=== PATIENT | female | born 1930 | race Caucasian/White ===

== ENCOUNTER 2017-08-26 15:08 | Inpatient (IN) | payer MEDICARE, MEDICAID ==
[2017-08-26 16:06] LABS: CHLORIDE,CL 105 mEq/L (98-106); SODIUM,NA 142 mEq/L (136-145)
--- NOTE | 2017-08-26 16:47 | EDM.PDOC ---
ED HPI GENERAL MEDICAL PROBLEM - General Chief Complaint: General Stated Complaint: weakness Time Seen by Provider: 08/26/17 16:00 Source of Information: Reports: EMS, Family History Limitations: Reports: Altered Mental Status (patient has dementia, answers with yes and no to questioning. ) - History of Present Illness INITIAL COMMENTS - FREE TEXT/NARRATIVE: Patient presents to ER per EMS due to weakness. Patient is a resident at the [facility] in [place] and was getting up from the table to transfer and was very weak and had to be lowered to the floor as "her legs gave out" as was reported to EMS from caregiver. Typically patient does ambulate short distances with a walker but today couldn't even stand. Caregiver reports she was weaker yesterday but still able to transfer. Hasn't had any fevers. No nausea/vomiting or diarrhea. Daughter here and states is concerned about patient being here and exposed to all the "illnesses going around". Onset: Today, Sudden Duration: Hour(s): Location: Reports: Generalized Associated Symptoms: Reports: Confusion (chronic ). Denies: Chest Pain, Cough, Loss of Appetite, Nausea/Vomiting (all ROS reported by caregiver, patient does not admit to anything), Shortness of Breath Treatments DISPLAY DIRECTOR: Reports: EKG, IV/IO - Related Data Allergies Allergy/AdvReac Type Severity Reaction Status Date / Time No Known Allergies Allergy Verified 08/26/17 15:19 Home Meds: Home Meds Albuterol Sulfate [Proair Hfa] 2 puff IH Q4H PRN 06/28/15 [History] Aspirin [Adult Low Dose Aspirin EC] 81 mg PO BEDTIME 06/28/15 [History] Donepezil HCl 10 mg PO WITHDINNER 06/28/15 [History] Ibuprofen/Diphenhydramine Cit [Advil PM Caplet] 1 tab PO BEDTIME 06/28/15 [ History] Mometasone/Formoterol [Dulera 100-5 MCG] 1 puff IH BIDRT 06/28/15 [History] Montelukast [Singulair] 10 mg PO DAILY 06/28/15 [History] Pantoprazole [ProTONIX] 40 mg PO DAILY 06/28/15 [History] atorvaSTATin [Lipitor] 20 mg PO DAILY 06/28/15 [History] risperiDONE [RisperiDAL] 0.25 mg PO BEDTIME 06/28/15 [History] Sertraline [Zoloft] 50 mg PO DAILY 06/30/15 [History] Lisinopril [Prinivil] 10 mg PO DAILY #30 tablet 07/02/15 [Rx] amLODIPine [Norvasc] 10 mg PO DAILY #30 tablet 07/02/15 [Rx] Carbidopa/Levodopa [Carbidopa-Levodopa 25-250] 1 tab PO TID 08/26/17 [History] Cetirizine [ZyrTEC] 10 mg PO DAILY 08/26/17 [History] Cranberry 500 mg PO DAILY 08/26/17 [History] Docusate Sodium [Doc-Q-Lace] 100 mg PO ASDIRECTED 08/26/17 [History] Donepezil HCl [Donepezil HCl] 1 tab PO QPM 08/26/17 [History] Past Medical History HEENT History: Reports: Allergic Rhinitis Other HEENT History: CERUMINOSIS Cardiovascular History: Reports: Hypertension Respiratory History: Reports: COPD Other Respiratory History: Admitted for aspiration pneumonia Genitourinary History: Reports: UTI, Recurrent Other Musculoskeletal History: Weakness Psychiatric History: Reports: Dementia, Depression Social & Family History - Family History Family Medical History: Noncontributory - Tobacco Use Smoking Status *Q: Never Smoker - Recreational Drug Use Recreational Drug Use: No ED ROS GENERAL - Review of Systems Review Of Systems: ROS reveals no pertinent complaints other than HPI. ED EXAM, GENERAL - Physical Exam Exam: See Below General Appearance: Alert, WD/WN, No Apparent Distress Ears: Normal External Exam, Normal TMs Nose: Normal Inspection, Normal Mucosa Throat/Mouth: Normal Inspection, Normal Oropharynx Head: Normocephalic Neck: Normal Inspection, Supple, Non-Tender Respiratory/Chest: No Respiratory Distress, Lungs Clear, Normal Breath Sounds Cardiovascular: Regular Rate, Rhythm GI/Abdominal: Normal Bowel Sounds, Soft, Non-Tender Neurological: Alert, Oriented Psychiatric: Normal Affect, Normal Mood Skin Exam: Warm, Dry Course - Vital Signs Last Recorded V/S: Last Vital Signs Temp 97.9 F 08/26/17 15:10 Pulse 68 08/26/17 15:10 Resp 16 08/26/17 15:10 BP 136/79 08/26/17 15:10 Pulse Ox 93 L 08/26/17 15:10 - Orders/Labs/Meds Orders: Active Orders 24 hr Category Date Time Status CULTURE URINE [RM] Stat Lab 08/26/17 16:13 Received Labs: Laboratory Tests 08/26/17 08/26/17 08/26/17 Range/Units 15:39 15:39 15:55 WBC 6.9 (5.0-10.0) 10^3/uL RBC 4.56 (4.00-5.50) 10^6/uL Hgb 13.8 (12.0-16.0) g/dL Hct 43.0 (37.0-47.0) % MCV 94.3 H (82.0-94.0) fL MCH 30.3 (27.0-32.0) pg MCHC 32.1 L (33.0-38.0) g/dL RDW Coeff of Carol 13.6 (11.0-15.0) % Plt Count 217 (150-400) 10^3/uL Neut % (Auto) 74.2 (35-85) % Lymph % (Auto) 15.8 (10-55) % [place] % (Auto) 7.2 (0-16) % Eos % (Auto) 2.7 (0-5) % Baso % (Auto) 0.1 (0-3) % Neut # (Auto) 5.12 (1.80-7.00) 10^3/uL Lymph # (Auto) 1.09 (1.00-4.80) 10^3/uL [place] # (Auto) 0.50 (0.00-0.80) 10^3/uL Eos # (Auto) 0.19 (0.00-0.45) 10^3/uL Baso # (Auto) 0.01 10^3/uL Sodium 142 (136-145) mEq/L Potassium 4.3 (3.5-5.0) mEq/L Chloride 105 (98-106) mEq/L Carbon Dioxide 27 (21-32) mmol/L BUN 19 H (7-18) mg/dL Creatinine 0.8 (0.6-1.0) mg/dL Est Cr Clr Drug Dosing 36.26 mL/min Estimated GFR (MDRD) > 60 (>=60) mL/min Glucose 99 (75-99) mg/dL Calcium 9.0 (8.4-10.1) mg/dL Total Bilirubin 0.5 (0.0-1.0) mg/dL AST 15 (15-37) U/L ALT 12 (12-78) U/L Alkaline Phosphatase 56 (46-116) U/L Lactate Dehydrogenase 166 (100-190) U/L Creatine Kinase 65 (21-215) U/L Troponin I < 0.017 (0.00-0.06) ng/mL C-Reactive Protein 1.4 H (0.2-0.8) mg/dL Total Protein 6.7 (6.4-8.2) g/dL Albumin 3.5 (3.4-5.0) g/dL Urine Color Yellow (YELLOW) Urine Appearance Slightly cloudy (CLEAR) Urine pH 7.0 (4.5-8.0) Ur Specific [place] 1.020 (1.003-1.020) Urine Protein Negative (NEGATIVE) mg/dL Urine Glucose (UA) Negative (NEGATIVE) mg/dL Urine Ketones 15 H (NEGATIVE) mg/dL Urine Occult Blood Negative (NEGATIVE) Urine Nitrite Negative (NEGATIVE) Urine Bilirubin Negative (NEGATIVE) Urine Urobilinogen 0.2 (0.2-1.0) EU/dL Ur Leukocyte Esterase Trace H (NEGATIVE) Urine RBC Not seen (0-5) /HPF Urine WBC 5-10 H (0-5) /HPF Ur Squamous Epith Cells Few H (NOT SEEN) /HPF Urine Bacteria Moderate H (NOT SEEN) /HPF Urinalysis Comment - Re-Assessments/Exams Free Text/Narrative Re-Assessment/Exam: 08/26/17 16:50 Did contact caregiver again by phone as well as with speaking to daughter who is at bedside. She does have a positive uncomplicated urine, labs otherwise normal. Caregiver does not feel she would be able to care for her unless her strength improves with treatment of the UTI. Will admit patient to observation for IV antibiotics and see how she does. Daughter is willing to allow this. Departure - Departure Time of Disposition: 17:00 Disposition: Refer to Observation Condition: Fair Clinical Impression: UTI (urinary tract infection) Qualifiers: Urinary tract infection type: acute cystitis Hematuria presence: with hematuria Qualified Code(s): N30.01 - Acute cystitis with hematuria - Discharge Information Referrals: Provider,Unknown [Ordering Only Provider] - - Problem List & Annotations (1) UTI, Urinary tract infectious disease SNOMED Code(s): 50508518 Code(s): N39.0 - URINARY TRACT INFECTION, SITE NOT SPECIFIED Status: Acute Priority: High Current Visit: Yes - Problem List Review Problem List Initiated/Reviewed/Updated: Yes - My Orders Last 24 Hours: My Active Orders 08/26/17 16:13 CULTURE URINE [RM] Stat - Assessment/Plan Admission H&P: Please use this note as an admission H&P Last 24 Hours: My Active Orders 08/26/17 16:13 CULTURE URINE [RM] Stat Assessment:: UTI Weakness Plan: Admit observation to Dr. Lima. Will start IV antibiotics for UTI, IV fluids. PT wanda.
[2017-08-26] MEDS ORDERED: Sodium Chloride 0.9% 10 ML Syringe FLUSH PRN (17:10)
[2017-08-26] MEDS ORDERED: Ondansetron 4 MG Tab.DIS PO PRN (17:10)
[2017-08-26] MEDS ORDERED: Albuterol 8 GM Inhaler INH PRN (17:10)
[2017-08-26] MEDS ORDERED: Acetaminophen 325 MG Tab PO PRN (17:10)
[2017-08-26] MEDS ORDERED: Ondansetron 4 MG/2 ML SDV IV PRN (17:10)
[2017-08-26] MEDS: Sodium Chloride 0.9% 1,000 ML IV SCH (17:40)
[2017-08-26] MEDS: Levofloxacin/Dextrose 5%-Water 500 MG in Premix Bag 1 BAG IV SCH (17:42)
[2017-08-26] MEDS: Enoxaparin 40 MG/0.4 ML Syringe SUBCUT SCH (19:39)
[2017-08-26] MEDS: Formoterol/Mometasone 100-5 MCG 8.8 GM Inhaler IH SCH (19:39)
[2017-08-26] MEDS ORDERED: DIPHENHYDRAMINE PO SCH (20:00)
[2017-08-26] MEDS ORDERED: RISPERIDONE 0.25 MG PO SCH (20:00)
[2017-08-26] MEDS ORDERED: IBUPROFEN PO SCH (20:00)
[2017-08-26] MEDS ORDERED: LEVODOPA PO SCH (20:00)
[2017-08-26] MEDS ORDERED: ASPIRIN 81 MG TAB **PTOM PO SCH (20:00)
[2017-08-26] MEDS ORDERED: DONEPEZIL 10 MG PO SCH (20:00)
[2017-08-26] MEDS ORDERED: DOCUSATE 100 MG PO SCH (20:00)
[2017-08-26] MEDS ORDERED: CARBIDOPA PO SCH (20:00)
[2017-08-27] MEDS: Sodium Chloride 0.9% 1,000 ML IV SCH (07:33)
[2017-08-27] MEDS: Formoterol/Mometasone 100-5 MCG 8.8 GM Inhaler IH SCH ×2 (07:45→19:16)
[2017-08-27] MEDS ORDERED: AMLODIPINE 10 MG PO SCH (08:00)
[2017-08-27] MEDS ORDERED: PANTOPRAZOLE 40 MG PO SCH (08:00)
[2017-08-27] MEDS ORDERED: CARBIDOPA PO SCH (08:00)
[2017-08-27] MEDS ORDERED: SERTRALINE 50 MG PO SCH (08:00)
[2017-08-27] MEDS ORDERED: CERTIRIZINE PO SCH (08:00)
[2017-08-27] MEDS ORDERED: MONTELUKAST 10 MG PO SCH (08:00)
[2017-08-27] MEDS ORDERED: LISINOPRIL 10 MG PO SCH (08:00)
[2017-08-27] MEDS ORDERED: LEVODOPA PO SCH (08:00)
[2017-08-27 08:23] LABS: CHLORIDE,CL 106 mEq/L (98-106); SODIUM,NA 139 mEq/L (136-145)
--- NOTE | 2017-08-27 09:01 | PCM.PN ---
- General Info Date of Service: 08/27/17 Functional Status: Reports: Pain Controlled. Denies: Tolerating Diet (Patient is sitting up in bed eating with RN assistance. However, she is coughing with drinking thin liquids. ), Ambulating - Review of Systems General: Reports: Weakness (generally) HEENT: Reports: No Symptoms Pulmonary: Reports: Cough (with thin liquids. ) Cardiovascular: Reports: No Symptoms Gastrointestinal: Reports: No Symptoms Genitourinary: Reports: No Symptoms Musculoskeletal: Reports: No Symptoms Skin: Reports: No Symptoms Neurological: Reports: No Symptoms Psychiatric: Reports: No Symptoms - Patient Data Vitals - Most Recent: Last Vital Signs Temp 97.1 F 08/27/17 07:32 Pulse 69 08/27/17 07:32 Resp 16 08/27/17 07:32 BP 143/74 H 08/27/17 07:32 Pulse Ox 95 08/27/17 07:32 Weight - Most Recent: 97 lb 4.8 oz I&O - Last 24 Hours: Intake & Output 08/26/17 08/27/17 08/27/17 22:59 06:59 14:59 Intake Total 50 1000 Balance 50 1000 Lab Results Last 24 Hours: Laboratory Results - last 24 hr 08/27/17 08/27/17 Range/Units 05:11 05:11 WBC 3.9 L (5.0-10.0) 10^3/uL RBC 4.59 (4.00-5.50) 10^6/uL Hgb 13.9 (12.0-16.0) g/dL Hct 42.7 (37.0-47.0) % MCV 93.0 (82.0-94.0) fL MCH 30.3 (27.0-32.0) pg MCHC 32.6 L (33.0-38.0) g/dL RDW Coeff of Carol 13.0 (11.0-15.0) % Plt Count 196 (150-400) 10^3/uL Neut % (Auto) 63.3 (35-85) % Lymph % (Auto) 21.7 (10-55) % [place] % (Auto) 8.8 (0-16) % Eos % (Auto) 5.7 H (0-5) % Baso % (Auto) 0.5 (0-3) % Neut # (Auto) 2.45 (1.80-7.00) 10^3/uL Lymph # (Auto) 0.84 L (1.00-4.80) 10^3/uL [place] # (Auto) 0.34 (0.00-0.80) 10^3/uL Eos # (Auto) 0.22 (0.00-0.45) 10^3/uL Baso # (Auto) 0.02 10^3/uL Sodium 139 (136-145) mEq/L Potassium 4.2 (3.5-5.0) mEq/L Chloride 106 (98-106) mEq/L Carbon Dioxide 25 (21-32) mmol/L BUN 13 (7-18) mg/dL Creatinine 0.7 (0.6-1.0) mg/dL Est Cr Clr Drug Dosing 40.19 mL/min Estimated GFR (MDRD) > 60 (>=60) mL/min Glucose 96 (75-99) mg/dL Calcium 8.2 L (8.4-10.1) mg/dL C-Reactive Protein 0.5 (0.2-0.8) mg/dL Med Orders - Current: Current Medications Acetaminophen (Tylenol) 650 mg PO Q4H PRN PRN Reason: Pain (Mild 1-3)/fever Albuterol (Ventolin Hfa) 0 gm INH Q4H PRN PRN Reason: Shortness of Breath Enoxaparin Sodium (Lovenox) 40 mg SUBCUT Q24H [facility] Last Admin: 08/26/17 19:39 Dose: 40 mg Sodium Chloride (Normal Saline) 1,000 mls @ 75 mls/hr IV ASDIRECTED [facility] Last Admin: 08/27/17 07:33 Dose: 75 mls/hr Levofloxacin/Dextrose 500 mg/ (Premix) 100 mls @ 100 mls/hr IV Q24H [facility] Last Admin: 08/26/17 17:42 Dose: 100 mls/hr Mometasone Furoate/Formoterol Fumar (Dulera 100-5 Mcg) 1 puff IH BIDRT [facility] Last Admin: 08/27/17 07:45 Dose: 1 puff Ondansetron HCl (Zofran Odt) 4 mg PO Q4H PRN PRN Reason: nausea, able to take PO Ondansetron HCl (Zofran) 4 mg IV Q4H PRN PRN Reason: Nausea/Vomiting Ptom - Amlodipine 10 (Mg Tab) 10 each PO DAILY [facility] Last Admin: 08/27/17 07:39 Dose: 10 each Aspirin 81 Mg Tab (Ptom) 1 each PO BEDTIME [facility] Last Admin: 08/26/17 19:42 Dose: 1 each Atorvastatin 20 Mg * (*Ptom) 20 each PO DAILY@2000 [facility] Carbidopa/Levodopa (25/250mg Tab Ptom*) 1 each PO BID@0800,1200 [facility] Last Admin: 08/27/17 07:40 Dose: 1 each Certirizine 10 Mg (Tab Ptom) 1 each PO DAILY [facility] Last Admin: 08/27/17 07:40 Dose: 1 each Docusate Colase 100 (Mg Cap Ptom) 100 each PO BEDTIME [facility] Last Admin: 08/26/17 19:43 Dose: 100 each Donepezil 10 Mg Tab (Ptom) 1 each PO QPM [facility] Last Admin: 08/26/17 19:44 Dose: 1 each Ibuprofen/Diphenhydramine 200/25mg Tab (Advil Pm) Ptom 1 each PO BEDTIME [facility] Last Admin: 08/26/17 19:45 Dose: 1 each Lisinopril 10 Mg Tab (Ptom) 1 each PO DAILY [facility] Last Admin: 08/27/17 07:40 Dose: 1 each Montelukast 10mg Tab (Ptom) 1 each PO DAILY [facility] Last Admin: 08/27/17 07:39 Dose: 1 each Pantoprazole 40mg (Tab Ptom) 1 each PO DAILY [facility] Last Admin: 08/27/17 07:38 Dose: 1 each Rispiridone 0.25mg (Tab Ptom) 1 each PO BEDTIME [facility] Last Admin: 08/26/17 19:45 Dose: 1 each Sertraline 50mg Tab (Ptom) 1 each PO DAILY [facility] Last Admin: 08/27/17 07:38 Dose: 1 each Carbidopa/Levodopa (25/100mg Ptom) 1 each PO BEDTIME [facility] Last Admin: 08/26/17 19:43 Dose: 1 each Sodium Chloride (Saline Flush) 10 ml FLUSH ASDIRECTED PRN PRN Reason: Keep Vein Open - Exam General: Alert, Cooperative, Other (oriented to self.) HEENT: Pupils Equal, Pupils Reactive, Mucous Membr. Moist/[place] Neck: Supple Lungs: Normal Respiratory Effort, Crackles (RLL) Cardiovascular: Regular Rate, Regular Rhythm GI/Abdominal Exam: Soft, Non-Tender Back Exam: Normal Inspection, Full Range of Motion Extremities: Normal Inspection, Normal Range of Motion, Non-Tender, No Pedal Edema, Normal Capillary Refill Peripheral Pulses: 2+: Radial (L), Radial (R), Posterior Tibial (L), Posterior Tibial (R), Dorsalis Pedis (L), Dorsalis Pedis (R) Skin: Warm, Dry, Intact Neurological: No New Focal Deficit, Other (oriented to self. Verbal responses slow. baseline history of dementia. ) Psy/Mental Status: Alert, Normal Affect, Suicidal Ideation - Problem List Review Problem List Initiated/Reviewed/Updated: Yes - My Orders Last 24 Hours: My Active Orders 08/26/17 20:00 Enoxaparin [Lovenox] 40 mg SUBCUT Q24H 08/27/17 08:49 Chest 1V Frontal [CR] Stat 08/27/17 Lunch Thickened Liquids [DIET] - Plan Plan:: This patient was admitted yesterday from the ER for generalized weakness and UTI. Patient labs this morning are unremarkable. Patient is sitting up in bed eating with RN assistance breakfast. She does cough with thin liquids. I anticipate she is aspirating thin liquids. I have ordered thickener and she is not coughing with liquids anymore. I have ordered a chest xray. Patient does not appear to be in distress. No resp distress. Patient specialty finishing utility person reports she can not take care of the patient due to her weakness. Daughter also reports she is unable to take care of the patient at home. Therefore, Tuesday long term placement will be explored with addiction social worker.
[2017-08-27] MEDS: Carbidopa/Levodopa 25-250 MG Tab PO SCH (12:00)
[2017-08-27] MEDS: Levofloxacin/Dextrose 5%-Water 500 MG in Premix Bag 1 BAG IV SCH (16:54)
[2017-08-27] MEDS: Donepezil 5 MG Tab PO SCH (19:14)
[2017-08-27] MEDS: Enoxaparin 40 MG/0.4 ML Syringe SUBCUT SCH (19:14)
[2017-08-27] MEDS: Ibuprofen 200 MG Tab PO SCH (19:15)
[2017-08-27] MEDS: atorvaSTATin 20 MG Tab PO SCH (19:15)
[2017-08-27] MEDS: diphenhydrAMINE 25 MG Cap PO SCH (19:15)
[2017-08-27] MEDS: Carbidopa/Levodopa 25-100 MG Tab PO SCH (19:15)
[2017-08-27] MEDS: Aspirin 81 MG Tab.EC PO SCH (19:15)
[2017-08-27] MEDS: risperiDONE 0.25 MG Tab PO SCH (19:15)
[2017-08-27] MEDS: Docusate Sodium 100 MG Cap PO SCH (19:15)
--- NOTE | 2017-08-28 05:07 | PCM.PN ---
- General Info Date of Service: 08/28/17 Functional Status: Reports: Pain Controlled, Tolerating Diet (now that she is on thick liquids. No cough or signs of active aspiration. ) - Review of Systems General: Reports: Weakness (generalized) HEENT: Reports: No Symptoms Pulmonary: Reports: No Symptoms Cardiovascular: Reports: No Symptoms Gastrointestinal: Reports: No Symptoms Genitourinary: Reports: No Symptoms Musculoskeletal: Reports: No Symptoms Skin: Reports: No Symptoms Neurological: Reports: No Symptoms Psychiatric: Reports: No Symptoms - Patient Data Vitals - Most Recent: Last Vital Signs Temp 98.6 F 08/28/17 03:43 Pulse 81 08/28/17 03:43 Resp 16 08/28/17 03:43 BP 142/82 H 08/28/17 03:43 Pulse Ox 95 08/28/17 03:43 Weight - Most Recent: 97 lb 4.8 oz I&O - Last 24 Hours: Intake & Output 08/27/17 08/27/17 08/28/17 14:59 22:59 06:59 Intake Total 565 Balance 565 Med Orders - Current: Current Medications Acetaminophen (Tylenol) 650 mg PO Q4H PRN PRN Reason: Pain (Mild 1-3)/fever Albuterol (Ventolin Hfa) 0 gm INH Q4H PRN PRN Reason: Shortness of Breath Amlodipine Besylate (Norvasc) 10 mg PO DAILY [facility] Aspirin (Halfprin) 81 mg PO BEDTIME [facility] Last Admin: 08/27/17 19:15 Dose: 81 mg Atorvastatin Calcium (Lipitor) 20 mg PO DAILY@1999 [facility] Last Admin: 08/27/17 19:15 Dose: 20 mg Carbidopa/Levodopa (Sinemet 25-100 Mg) 1 tab PO BEDTIME [facility] Last Admin: 08/27/17 19:15 Dose: 1 tab Carbidopa/Levodopa (Sinemet 25-250 Mg) 1 tab PO BID@0800,1200 [facility] Last Admin: 08/27/17 12:00 Dose: 1 tab Diphenhydramine HCl (Benadryl) 25 mg PO BEDTIME [facility] Last Admin: 08/27/17 19:15 Dose: 25 mg Docusate Sodium (Colace) 100 mg PO BEDTIME [facility] Last Admin: 08/27/17 19:15 Dose: 100 mg Donepezil HCl (Aricept) 10 mg PO QPM [facility] Last Admin: 08/27/17 19:14 Dose: 10 mg Enoxaparin Sodium (Lovenox) 40 mg SUBCUT Q24H [facility] Last Admin: 08/27/17 19:14 Dose: 40 mg Levofloxacin/Dextrose 500 mg/ (Premix) 100 mls @ 100 mls/hr IV Q24H [facility] Last Admin: 08/27/17 16:54 Dose: 100 mls/hr Ibuprofen (Motrin) 200 mg PO BEDTIME [facility] Last Admin: 08/27/17 19:15 Dose: 200 mg Lisinopril (Prinivil) 10 mg PO DAILY [facility] Loratadine (Claritin) 10 mg PO DAILY [facility] Mometasone Furoate/Formoterol Fumar (Dulera 100-5 Mcg) 1 puff IH BIDRT [facility] Last Admin: 08/27/17 19:16 Dose: 1 puff Montelukast Sodium (Singulair) 10 mg PO DAILY [facility] Ondansetron HCl (Zofran Odt) 4 mg PO Q4H PRN PRN Reason: nausea, able to take PO Ondansetron HCl (Zofran) 4 mg IV Q4H PRN PRN Reason: Nausea/Vomiting Pantoprazole Sodium (Protonix) 40 mg PO DAILY [facility] Risperidone (Risperidal) 0.25 mg PO BEDTIME [facility] Last Admin: 08/27/17 19:15 Dose: 0.25 mg Sertraline HCl (Zoloft) 50 mg PO DAILY [facility] Sodium Chloride (Saline Flush) 10 ml FLUSH ASDIRECTED PRN PRN Reason: Keep Vein Open Discontinued Medications Sodium Chloride (Normal Saline) 1,000 mls @ 75 mls/hr IV ASDIRECTED [facility] Last Admin: 08/27/17 07:33 Dose: 75 mls/hr Ptom - Amlodipine 10 (Mg Tab) 10 each PO DAILY [facility] Last Admin: 08/27/17 07:39 Dose: 10 each Aspirin 81 Mg Tab (Ptom) 1 each PO BEDTIME [facility] Last Admin: 08/26/17 19:42 Dose: 1 each Carbidopa/Levodopa (25/250mg Tab Ptom*) 1 each PO BID@0800,1200 [facility] Last Admin: 08/27/17 07:40 Dose: 1 each Certirizine 10 Mg (Tab Ptom) 1 each PO DAILY [facility] Last Admin: 08/27/17 07:40 Dose: 1 each Docusate Colase 100 (Mg Cap Ptom) 100 each PO BEDTIME [facility] Last Admin: 08/26/17 19:43 Dose: 100 each Donepezil 10 Mg Tab (Ptom) 1 each PO QPM [facility] Last Admin: 08/26/17 19:44 Dose: 1 each Ibuprofen/Diphenhydramine 200/25mg Tab (Advil Pm) Ptom 1 each PO BEDTIME [facility] Last Admin: 08/26/17 19:45 Dose: 1 each Lisinopril 10 Mg Tab (Ptom) 1 each PO DAILY [facility] Last Admin: 08/27/17 07:40 Dose: 1 each Montelukast 10mg Tab (Ptom) 1 each PO DAILY [facility] Last Admin: 08/27/17 07:39 Dose: 1 each Pantoprazole 40mg (Tab Ptom) 1 each PO DAILY [facility] Last Admin: 08/27/17 07:38 Dose: 1 each Rispiridone 0.25mg (Tab Ptom) 1 each PO BEDTIME [facility] Last Admin: 08/26/17 19:45 Dose: 1 each Sertraline 50mg Tab (Ptom) 1 each PO DAILY [facility] Last Admin: 08/27/17 07:38 Dose: 1 each Carbidopa/Levodopa (25/100mg Ptom) 1 each PO BEDTIME [facility] Last Admin: 08/26/17 19:43 Dose: 1 each - Exam General: Alert, Oriented (to self only. baseline. ), Cooperative, No Acute Distress Neck: Supple Lungs: Normal Respiratory Effort, Crackles (RLL) Cardiovascular: Regular Rate, Regular Rhythm GI/Abdominal Exam: Normal Bowel Sounds, Soft, Non-Tender, No Distention Back Exam: Normal Inspection, Full Range of Motion Extremities: Normal Inspection, Normal Range of Motion, Non-Tender, No Pedal Edema, Normal Capillary Refill Skin: Warm, Dry, Intact Neurological: No New Focal Deficit Psy/Mental Status: Alert, Normal Affect, Normal Mood - Problem List Review Problem List Initiated/Reviewed/Updated: Yes - My Orders Last 24 Hours: My Active Orders 08/27/17 Lunch Thickened Liquids [DIET] 08/28/17 04:59 CULTURE BLOOD [BC] Stat CULTURE BLOOD [BC] Stat LACTIC ACID [CHEM] Routine Blood Culture x2 Reflex Set [OM.PC] Stat 08/28/17 05:00 CBC WITH AUTO DIFF [HEME] DAILY CMP [COMPREHENSIVE METABOLIC PN,CMP] [CHEM] DAILY CRP, HIGH SENSITIVITY [REF] DAILY 08/29/17 05:00 CBC WITH AUTO DIFF [HEME] DAILY CMP [COMPREHENSIVE METABOLIC PN,CMP] [CHEM] DAILY CRP, HIGH SENSITIVITY [REF] DAILY 08/30/17 05:00 CBC WITH AUTO DIFF [HEME] DAILY CMP [COMPREHENSIVE METABOLIC PN,CMP] [CHEM] DAILY CRP, HIGH SENSITIVITY [REF] DAILY - Plan Plan:: 08/27/17814 This patient was admitted yesterday from the ER for generalized weakness and UTI. Patient labs this morning are unremarkable. Patient is sitting up in bed eating with RN assistance breakfast. She does cough with thin liquids. I anticipate she is aspirating thin liquids. She does have crackles RLL on auscultation. Have ordered CXR. I have ordered thickener and she is not coughing with liquids anymore. Patient does not appear to be in distress. No resp distress. Patient spd manager reports she can not take care of the patient due to her weakness. Daughter also reports she is unable to take care of the patient at home. Therefore, Tuesday long-term placement will be explored with social secretary. 08/28/17 0500 I have reviewed the patient CXR and radiologist has also read. The patient has right base infiltrate that is new from previous chest xray on 07/20/17. I have ordered patient labs for this morning and will review. I have added blood cultures, lactic acid, cbc, cmp, crp. The patient is alert and awake this morning. She is oriented to self, her baseline. Patient is currently on Levaquin for UTI. I will keep her on Levaquin for her pneumonia that could be aspiration related. I had also changed the patient yesterday to acute status from obs due to her lung sounds, inability to return home, uti, generalized weakness. Patient will be evaluated by her PCP tomorrow and continue current treatment plan of abx for pneumonia and thickened liquids.
[2017-08-28] MEDS: Pantoprazole 40 MG Tab.CR PO SCH (07:53)
[2017-08-28] MEDS: amLODIPine 10 MG Tab PO SCH (07:53)
[2017-08-28] MEDS: Carbidopa/Levodopa 25-250 MG Tab PO SCH ×2 (07:53→13:14)
[2017-08-28] MEDS: Sertraline 25 MG Tab PO SCH (07:54)
[2017-08-28] MEDS: Loratadine 10 MG Tab PO SCH (07:54)
[2017-08-28] MEDS: Montelukast 10 MG Tab PO SCH (07:54)
[2017-08-28] MEDS: Lisinopril 10 MG Tab PO SCH (07:54)
[2017-08-28 08:10] LABS: CHLORIDE,CL 105 mEq/L (98-106); SODIUM,NA 139 mEq/L (136-145)
[2017-08-28] MEDS: Formoterol/Mometasone 100-5 MCG 8.8 GM Inhaler IH SCH ×2 (08:15→20:55)
[2017-08-28] MEDS: Levofloxacin/Dextrose 5%-Water 500 MG in Premix Bag 1 BAG IV SCH (16:15)
[2017-08-28] MEDS: Ibuprofen 200 MG Tab PO SCH (20:10)
[2017-08-28] MEDS: Docusate Sodium 100 MG Cap PO SCH (20:12)
[2017-08-28] MEDS: Donepezil 5 MG Tab PO SCH (20:12)
[2017-08-28] MEDS: atorvaSTATin 20 MG Tab PO SCH (20:12)
[2017-08-28] MEDS: Aspirin 81 MG Tab.EC PO SCH (20:12)
[2017-08-28] MEDS: diphenhydrAMINE 25 MG Cap PO SCH (20:13)
[2017-08-28] MEDS: risperiDONE 0.25 MG Tab PO SCH (20:13)
[2017-08-28] MEDS: Enoxaparin 40 MG/0.4 ML Syringe SUBCUT SCH (20:13)
[2017-08-28] MEDS: Carbidopa/Levodopa 25-100 MG Tab PO SCH (20:13)
[2017-08-29] MEDS: Montelukast 10 MG Tab PO SCH (07:30)
[2017-08-29] MEDS: Pantoprazole 40 MG Tab.CR PO SCH (07:30)
[2017-08-29] MEDS: amLODIPine 10 MG Tab PO SCH (07:30)
[2017-08-29] MEDS: Sertraline 25 MG Tab PO SCH (07:31)
[2017-08-29] MEDS: Lisinopril 10 MG Tab PO SCH (07:31)
[2017-08-29] MEDS: Loratadine 10 MG Tab PO SCH (07:32)
[2017-08-29] MEDS: Carbidopa/Levodopa 25-250 MG Tab PO SCH ×2 (07:32→11:56)
[2017-08-29 07:43] LABS: CHLORIDE,CL 105 mEq/L (98-106); SODIUM,NA 139 mEq/L (136-145)
[2017-08-29] MEDS: Formoterol/Mometasone 100-5 MCG 8.8 GM Inhaler IH SCH ×2 (07:46→19:47)
--- NOTE | 2017-08-29 08:59 | PCM.PN ---
- General Info Date of Service: 08/29/17 Admission Dx/Problem (Free Text): UTI Weakness Functional Status: Reports: Pain Controlled, Tolerating Diet. Denies: Ambulating - Review of Systems General: Reports: Weakness, Other (patient denies any concerns but is only oriented to person). Denies: Fever HEENT: Reports: No Symptoms Pulmonary: Denies: Shortness of Breath, Cough Cardiovascular: Denies: Chest Pain, Edema, Lightheadedness Gastrointestinal: Denies: Abdominal Pain, Nausea, Vomiting Genitourinary: Reports: Incontinence Skin: Reports: No Symptoms Neurological: Reports: Confusion - Patient Data Vitals - Most Recent: Last Vital Signs Temp 98.3 F 08/29/17 07:54 Pulse 65 08/29/17 07:54 Resp 18 08/29/17 07:54 BP 143/66 H 08/29/17 07:54 Pulse Ox 95 08/29/17 07:54 Weight - Most Recent: 97 lb 4.8 oz Lab Results Last 24 Hours: Laboratory Results - last 24 hr 08/28/17 08/29/17 08/29/17 Range/Units 05:00 05:00 07:12 WBC 5.4 6.0 (5.0-10.0) 10^3/uL RBC 4.74 4.57 (4.00-5.50) 10^6/uL Hgb 14.4 13.8 (12.0-16.0) g/dL Hct 43.1 41.6 (37.0-47.0) % MCV 90.9 91.0 (82.0-94.0) fL MCH 30.4 30.2 (27.0-32.0) pg MCHC 33.4 33.2 (33.0-38.0) g/dL RDW Coeff of Carol 13.3 13.3 (11.0-15.0) % Plt Count 207 223 (150-400) 10^3/uL Neut % (Auto) 66.9 68.2 (35-85) % Lymph % (Auto) 19.7 17.9 (10-55) % [place] % (Auto) 7.8 9.3 (0-16) % Eos % (Auto) 5.2 H 4.1 (0-5) % Baso % (Auto) 0.4 0.5 (0-3) % Neut # (Auto) 3.60 4.12 (1.80-7.00) 10^3/uL Lymph # (Auto) 1.06 1.08 (1.00-4.80) 10^3/uL [place] # (Auto) 0.42 0.56 (0.00-0.80) 10^3/uL Eos # (Auto) 0.28 0.25 (0.00-0.45) 10^3/uL Baso # (Auto) 0.02 0.03 10^3/uL Sodium 139 (136-145) mEq/L Potassium 4.1 (3.5-5.0) mEq/L Chloride 105 (98-106) mEq/L Carbon Dioxide 26 (21-32) mmol/L BUN 16 (7-18) mg/dL Creatinine 0.8 (0.6-1.0) mg/dL Est Cr Clr Drug Dosing 35.17 mL/min Estimated GFR (MDRD) > 60 (>=60) mL/min Glucose 104 H (75-99) mg/dL Calcium 8.9 (8.4-10.1) mg/dL Total Bilirubin 0.4 (0.0-1.0) mg/dL AST 17 (15-37) U/L ALT 22 (12-78) U/L Alkaline Phosphatase 51 (46-116) U/L C-Reactive Protein < 0.2 L (0.2-0.8) mg/dL Total Protein 6.4 (6.4-8.2) g/dL Albumin 3.2 L (3.4-5.0) g/dL Samy Results Last 24 Hours: Microbiology 08/28/17 07:35 Anaerobic Blood Culture - Final Blood - Venous - Lab Draw Med Orders - Current: Current Medications Acetaminophen (Tylenol) 650 mg PO Q4H PRN PRN Reason: Pain (Mild 1-3)/fever Albuterol (Ventolin Hfa) 0 gm INH Q4H PRN PRN Reason: Shortness of Breath Amlodipine Besylate (Norvasc) 10 mg PO DAILY [facility] Last Admin: 08/29/17 07:30 Dose: 10 mg Aspirin (Halfprin) 81 mg PO BEDTIME [facility] Last Admin: 08/28/17 20:12 Dose: 81 mg Atorvastatin Calcium (Lipitor) 20 mg PO DAILY@1999 [facility] Last Admin: 08/28/17 20:12 Dose: 20 mg Carbidopa/Levodopa (Sinemet 25-100 Mg) 1 tab PO BEDTIME [facility] Last Admin: 08/28/17 20:13 Dose: 1 tab Carbidopa/Levodopa (Sinemet 25-250 Mg) 1 tab PO BID@0800,1200 [facility] Last Admin: 08/29/17 07:32 Dose: 1 tab Diphenhydramine HCl (Benadryl) 25 mg PO BEDTIME [facility] Last Admin: 08/28/17 20:13 Dose: 25 mg Docusate Sodium (Colace) 100 mg PO BEDTIME [facility] Last Admin: 08/28/17 20:12 Dose: 100 mg Donepezil HCl (Aricept) 10 mg PO QPM [facility] Last Admin: 08/28/17 20:12 Dose: 10 mg Enoxaparin Sodium (Lovenox) 40 mg SUBCUT Q24H [facility] Last Admin: 08/28/17 20:13 Dose: 40 mg Levofloxacin/Dextrose 500 mg/ (Premix) 100 mls @ 100 mls/hr IV Q24H [facility] Last Admin: 08/28/17 16:15 Dose: 100 mls/hr Ibuprofen (Motrin) 200 mg PO BEDTIME [facility] Last Admin: 08/28/17 20:10 Dose: 200 mg Lisinopril (Prinivil) 10 mg PO DAILY [facility] Last Admin: 08/29/17 07:31 Dose: 10 mg Loratadine (Claritin) 10 mg PO DAILY [facility] Last Admin: 08/29/17 07:32 Dose: 10 mg Mometasone Furoate/Formoterol Fumar (Dulera 100-5 Mcg) 1 puff IH BIDRT [facility] Last Admin: 08/29/17 07:46 Dose: 1 puff Montelukast Sodium (Singulair) 10 mg PO DAILY [facility] Last Admin: 08/29/17 07:30 Dose: 10 mg Ondansetron HCl (Zofran Odt) 4 mg PO Q4H PRN PRN Reason: nausea, able to take PO Ondansetron HCl (Zofran) 4 mg IV Q4H PRN PRN Reason: Nausea/Vomiting Pantoprazole Sodium (Protonix) 40 mg PO DAILY [facility] Last Admin: 08/29/17 07:30 Dose: 40 mg Risperidone (Risperidal) 0.25 mg PO BEDTIME [facility] Last Admin: 08/28/17 20:13 Dose: 0.25 mg Sertraline HCl (Zoloft) 50 mg PO DAILY [facility] Last Admin: 08/29/17 07:31 Dose: 50 mg Sodium Chloride (Saline Flush) 10 ml FLUSH ASDIRECTED PRN PRN Reason: Keep Vein Open Discontinued Medications Sodium Chloride (Normal Saline) 1,000 mls @ 75 mls/hr IV ASDIRECTED [facility] Last Admin: 08/27/17 07:33 Dose: 75 mls/hr Ptom - Amlodipine 10 (Mg Tab) 10 each PO DAILY [facility] Last Admin: 08/27/17 07:39 Dose: 10 each Aspirin 81 Mg Tab (Ptom) 1 each PO BEDTIME [facility] Last Admin: 08/26/17 19:42 Dose: 1 each Carbidopa/Levodopa (25/250mg Tab Ptom*) 1 each PO BID@0800,1200 [facility] Last Admin: 08/27/17 07:40 Dose: 1 each Certirizine 10 Mg (Tab Ptom) 1 each PO DAILY [facility] Last Admin: 08/27/17 07:40 Dose: 1 each Docusate Colase 100 (Mg Cap Ptom) 100 each PO BEDTIME [facility] Last Admin: 08/26/17 19:43 Dose: 100 each Donepezil 10 Mg Tab (Ptom) 1 each PO QPM [facility] Last Admin: 08/26/17 19:44 Dose: 1 each Ibuprofen/Diphenhydramine 200/25mg Tab (Advil Pm) Ptom 1 each PO BEDTIME [facility] Last Admin: 08/26/17 19:45 Dose: 1 each Lisinopril 10 Mg Tab (Ptom) 1 each PO DAILY [facility] Last Admin: 08/27/17 07:40 Dose: 1 each Montelukast 10mg Tab (Ptom) 1 each PO DAILY [facility] Last Admin: 08/27/17 07:39 Dose: 1 each Pantoprazole 40mg (Tab Ptom) 1 each PO DAILY [facility] Last Admin: 08/27/17 07:38 Dose: 1 each Rispiridone 0.25mg (Tab Ptom) 1 each PO BEDTIME [facility] Last Admin: 08/26/17 19:45 Dose: 1 each Sertraline 50mg Tab (Ptom) 1 each PO DAILY [facility] Last Admin: 08/27/17 07:38 Dose: 1 each Carbidopa/Levodopa (25/100mg Ptom) 1 each PO BEDTIME [facility] Last Admin: 08/26/17 19:43 Dose: 1 each - Exam General: Oriented (person only), Other (drowsy this am) HEENT: Mucous Membr. Moist/Guys Neck: Supple Lungs: Decreased Breath Sounds, Crackles (RLL) Cardiovascular: Regular Rate, Regular Rhythm GI/Abdominal Exam: Normal Bowel Sounds, Soft, Non-Tender Extremities: Normal Inspection, No Pedal Edema Skin: Warm, Dry Neurological: No New Focal Deficit - Problem List & Annotations (1) UTI, Urinary tract infectious disease SNOMED Code(s): 08645642 Code(s): N39.0 - URINARY TRACT INFECTION, SITE NOT SPECIFIED Status: Acute Priority: High Current Visit: Yes (2) Aspiration pneumonia SNOMED Code(s): 624632011 Code(s): J69.0 - PNEUMONITIS DUE TO INHALATION OF FOOD AND VOMIT Status: Acute Priority: High Current Visit: Yes Qualifiers: Laterality: right Lung location: lower lobe of lung - Problem List Review Problem List Initiated/Reviewed/Updated: Yes - My Orders Last 24 Hours: My Active Orders 08/28/17 08:00 Lisinopril [Prinivil] 10 mg PO DAILY Loratadine [Claritin] 10 mg PO DAILY Montelukast [Singulair] 10 mg PO DAILY Pantoprazole [ProTONIX] 40 mg PO DAILY Sertraline [Zoloft] 50 mg PO DAILY amLODIPine [Norvasc] 10 mg PO DAILY - Assessment Assessment:: UTI Weakness RLL pneumonia - Plan Plan:: 08/27/17 0815 This patient was admitted yesterday from the ER for generalized weakness and UTI. Patient labs this morning are unremarkable. Patient is sitting up in bed eating with RN assistance breakfast. She does cough with thin liquids. I anticipate she is aspirating thin liquids. She does have crackles RLL on auscultation. Have ordered CXR. I have ordered thickener and she is not coughing with liquids anymore. Patient does not appear to be in distress. No resp distress. 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 Daughter also reports she is unable to take care of the patient at home. Therefore, Tuesday correction placement will be explored with social professionals. 08/28/17 0500 I have reviewed the patient CXR and radiologist has also read. The patient has right base infiltrate that is new from previous chest xray on 07/20/17. I have ordered patient labs for this morning and will review. I have added blood cultures, lactic acid, cbc, cmp, crp. The patient is alert and awake this morning. She is oriented to self, her baseline. Patient is currently on Levaquin for UTI. I will keep her on Levaquin for her pneumonia that could be aspiration related. I had also changed the patient yesterday to acute status from obs due to her lung sounds, inability to return home, uti, generalized weakness. Patient will be evaluated by her PCP tomorrow and continue current treatment plan of abx for pneumonia and thickened liquids. 08-29-2017 Patient drowsy this am, states is feeling good. Oriented to person. No respiratory difficulties noted. Per report, patient possibly aspirated on Tuesday. Was transferred to acute status and kept on Levaquin. Lung sounds to note crackles in the RLL. Labs remain normal this am, WBC 6.0, CRP negative. Electrolytes within normal limits. Patient needing to be fed this am. guest services lead aware of patient's inability to return back to the [facility] due to weakness. Will continue with IV antibiotics, PT eval for weakness. Probable transfer to correction when able.
[2017-08-29] MEDS ORDERED: FLU Vacc QS 2017-18 (36mos UP)/PF 60 MCG/0.5 ML Syringe IM ONE (09:37)
[2017-08-29] MEDS: Levofloxacin/Dextrose 5%-Water 500 MG in Premix Bag 1 BAG IV SCH (17:33)
[2017-08-29] MEDS: Ibuprofen 200 MG Tab PO SCH (19:41)
[2017-08-29] MEDS: Donepezil 5 MG Tab PO SCH (19:44)
[2017-08-29] MEDS: diphenhydrAMINE 25 MG Cap PO SCH (19:44)
[2017-08-29] MEDS: Docusate Sodium 100 MG Cap PO SCH (19:44)
[2017-08-29] MEDS: atorvaSTATin 20 MG Tab PO SCH (19:44)
[2017-08-29] MEDS: Carbidopa/Levodopa 25-100 MG Tab PO SCH (19:44)
[2017-08-29] MEDS: Aspirin 81 MG Tab.EC PO SCH (19:44)
[2017-08-29] MEDS: risperiDONE 0.25 MG Tab PO SCH (19:44)
[2017-08-29] MEDS: Enoxaparin 40 MG/0.4 ML Syringe SUBCUT SCH (19:45)
[2017-08-30] MEDS: Pantoprazole 40 MG Tab.CR PO SCH (07:24)
[2017-08-30] MEDS: Loratadine 10 MG Tab PO SCH (07:24)
[2017-08-30] MEDS: Carbidopa/Levodopa 25-250 MG Tab PO SCH ×2 (07:24→11:17)
[2017-08-30] MEDS: Lisinopril 10 MG Tab PO SCH (07:25)
[2017-08-30] MEDS: Montelukast 10 MG Tab PO SCH (07:25)
[2017-08-30] MEDS: Sertraline 25 MG Tab PO SCH (07:25)
[2017-08-30] MEDS: amLODIPine 10 MG Tab PO SCH (07:26)
[2017-08-30] MEDS: Formoterol/Mometasone 100-5 MCG 8.8 GM Inhaler IH SCH (07:27)
[2017-08-30 07:41] LABS: CHLORIDE,CL 106 mEq/L (98-106); SODIUM,NA 138 mEq/L (136-145)
[2017-08-30] MEDS: Levofloxacin/Dextrose 5%-Water 500 MG in Premix Bag 1 BAG IV SCH (09:08)
--- NOTE | 2017-08-30 09:55 | PCM.DCSUM1 ---
Discharge Summary - Hospital Course Free Text/Narrative:: Patient presented to ER per EMS for weakness. Patient was to transfer from the table when her legs gave out and she had to be lowered to the floor. Caregiver was unable to get her up due to weakness. She had been having more concerns with this for about 3 days prior, walking shorter distances. She had not been running a fever, no cough, had appeared to be feeling well, just more tired than usual. Work up in the ER did show an UTI, other labs remain normal. Was admitted for observation and started on IV Levaquin and fluids. - Discharge Data Discharge Date: 08/30/17 Discharge Disposition: DC/[facility] to [facility] Condition: Good - Discharge Diagnosis/Problem(s) (1) UTI, Urinary tract infectious disease SNOMED Code(s): 91065831 ICD Code: N39.0 - URINARY TRACT INFECTION, SITE NOT SPECIFIED Status: Acute Priority: High Current Visit: Yes (2) Aspiration pneumonia SNOMED Code(s): 182750743 ICD Code: J69.0 - PNEUMONITIS DUE TO INHALATION OF FOOD AND VOMIT Status: Acute Priority: High Current Visit: Yes Qualifiers: Laterality: left Lung location: lower lobe of lung - Patient Summary/Data Complications: none Consults: Consultations 08/29/17 09:01 Consult to Physical Therapy [PT Evaluation and Treatment] [CONS] Routine Hospital Course: Patient has had minimal improvement of weakness through stay. Was having issues with thin liquids and appeared to have dysphagia on Tuesday. Questionably aspirated. Chest xray done that did show an infiltrate so was continued on Levaquin and dietary changes made. Patient still has much fatigue , sleeps much of the day. Does answer simple questions, oriented to person only. Very hard of hearing. Denies pain. Does require assist for any transfers. Lung sounds do continue to have crackles in the bases, otherwise good air exchange. Remains afebrile. Oxygen sats 94-95% on room air. Is eating small amounts of meals, does need constant reminders and does eat very slow. Labs have remained normal. WBC 7.0, CRP negative. - Patient Instructions Diet: Usual Diet as Tolerated (thickened liquids) Activity: As Tolerated - Discharge Plan Prescriptions/Med Rec: Acetaminophen [Tylenol] 650 mg PO Q4H PRN #30 tablet PRN Reason: Pain (Mild 1-3)/fever Levofloxacin [Levaquin] 500 mg PO DAILY #7 tab Home Medications: Home Meds Albuterol Sulfate [Proair Hfa] 2 puff IH Q4H PRN 06/28/15 [History] Aspirin [Adult Low Dose Aspirin EC] 81 mg PO BEDTIME 06/28/15 [History] Mometasone/Formoterol [Dulera 100-5 MCG] 1 puff IH BIDRT 06/28/15 [History] Montelukast [Singulair] 10 mg PO DAILY 06/28/15 [History] Pantoprazole [ProTONIX] 40 mg PO DAILY 06/28/15 [History] atorvaSTATin [Lipitor] 20 mg PO DAILY 06/28/15 [History] risperiDONE [RisperiDAL] 0.25 mg PO BEDTIME 06/28/15 [History] Sertraline [Zoloft] 50 mg PO DAILY 06/30/15 [History] Lisinopril [Prinivil] 10 mg PO DAILY #30 tablet 07/02/15 [Rx] amLODIPine [Norvasc] 10 mg PO DAILY #30 tablet 07/02/15 [Rx] Carbidopa/Levodopa [Carbidopa-Levodopa 25-250] 1 tab PO TID 08/26/17 [History] Cetirizine [ZyrTEC] 10 mg PO DAILY 08/26/17 [History] Cranberry 500 mg PO DAILY 08/26/17 [History] Docusate Sodium [Doc-Q-Lace] 100 mg PO ASDIRECTED 08/26/17 [History] Donepezil HCl 1 tab PO QPM 08/26/17 [History] Acetaminophen [Tylenol] 650 mg PO Q4H PRN #30 tablet 08/30/17 [Rx] Levofloxacin [Levaquin] 500 mg PO DAILY #7 tab 08/30/17 [Rx] Forms: ED Department Discharge Referrals: Provider,Unknown [Ordering Only Provider] - - Discharge Summary/Plan Comment DC Time >30 min.: Yes Discharge Summary/Plan Comment: Patient will be transferred to the halfway in [place] due to ongoing weakness. She will continue on Levaquin 500 mg daily for 7 days and all other usual meds but will stop the ibuprofen. PT and OT for strengthening. - General Info Date of Service: 01/30/18 Admission Dx/Problem (Free Text: UTI Weakness Pneumonia Functional Status: Reports: Pain Controlled, Tolerating Diet. Denies: Ambulating - Review of Systems General: Reports: Weakness, Fatigue. Denies: Fever HEENT: Reports: No Symptoms Pulmonary: Denies: Shortness of Breath, Cough Cardiovascular: Denies: Chest Pain, Edema, Lightheadedness Gastrointestinal: Reports: Decreased Appetite. Denies: Abdominal Pain, Nausea, Vomiting Neurological: Reports: Confusion - Patient Data Vitals - Most Recent: Last Vital Signs Temp 98.6 F 08/30/17 07:53 Pulse 72 08/30/17 07:53 Resp 20 08/30/17 07:53 BP 122/68 08/30/17 07:53 Pulse Ox 95 08/30/17 07:53 Weight - Most Recent: 97 lb 4.8 oz I&O - Last 24 hours: Intake & Output 08/29/17 08/30/17 08/30/17 22:59 06:59 14:59 Intake Total 100 Balance 100 Lab Results - Last 24 hrs: Laboratory Results - last 24 hr 08/30/17 08/30/17 Range/Units 07:00 07:00 WBC 7.0 (5.0-10.0) 10^3/uL RBC 4.42 (4.00-5.50) 10^6/uL Hgb 13.5 (12.0-16.0) g/dL Hct 39.9 (37.0-47.0) % MCV 90.3 (82.0-94.0) fL MCH 30.5 (27.0-32.0) pg MCHC 33.8 (33.0-38.0) g/dL RDW Coeff of Carol 13.5 (11.0-15.0) % Plt Count 230 (150-400) 10^3/uL Neut % (Auto) 68.8 (35-85) % Lymph % (Auto) 17.7 (10-55) % [place] % (Auto) 9.3 (0-16) % Eos % (Auto) 3.9 (0-5) % Baso % (Auto) 0.3 (0-3) % Neut # (Auto) 4.83 (1.80-7.00) 10^3/uL Lymph # (Auto) 1.24 (1.00-4.80) 10^3/uL [place] # (Auto) 0.65 (0.00-0.80) 10^3/uL Eos # (Auto) 0.27 (0.00-0.45) 10^3/uL Baso # (Auto) 0.02 10^3/uL Sodium 138 (136-145) mEq/L Potassium 4.2 (3.5-5.0) mEq/L Chloride 106 (98-106) mEq/L Carbon Dioxide 26 (21-32) mmol/L BUN 23 H (7-18) mg/dL Creatinine 0.9 (0.6-1.0) mg/dL Est Cr Clr Drug Dosing 31.26 mL/min Estimated GFR (MDRD) 59 L (>=60) mL/min Glucose 97 (75-99) mg/dL Calcium 8.6 (8.4-10.1) mg/dL Total Bilirubin 0.3 (0.0-1.0) mg/dL AST 21 (15-37) U/L ALT 25 (12-78) U/L Alkaline Phosphatase 46 (46-116) U/L C-Reactive Protein < 0.2 L (0.2-0.8) mg/dL Total Protein 6.1 L (6.4-8.2) g/dL Albumin 3.1 L (3.4-5.0) g/dL DAVID Results - Last 24 hrs: Microbiology 08/28/17 07:50 Aerobic Blood Culture - Preliminary Blood - Venous NO GROWTH AFTER 2 DAYS Anaerobic Blood Culture - Preliminary NO GROWTH AFTER 2 DAYS 08/28/17 07:35 Aerobic Blood Culture - Preliminary Blood - Venous - Lab Draw NO GROWTH AFTER 2 DAYS Anaerobic Blood Culture - Final Med Orders - Current: Current Medications Acetaminophen (Tylenol) 650 mg PO Q4H PRN PRN Reason: Pain (Mild 1-3)/fever Last Admin: 08/29/17 17:36 Dose: 650 mg Albuterol (Ventolin Hfa) 0 gm INH Q4H PRN PRN Reason: Shortness of Breath Amlodipine Besylate (Norvasc) 10 mg PO DAILY [facility] Last Admin: 08/30/17 07:26 Dose: 10 mg Aspirin (Halfprin) 81 mg PO BEDTIME [facility] Last Admin: 08/29/17 19:44 Dose: 81 mg Atorvastatin Calcium (Lipitor) 20 mg PO DAILY@1999 [facility] Last Admin: 08/29/17 19:44 Dose: 20 mg Carbidopa/Levodopa (Sinemet 25-100 Mg) 1 tab PO BEDTIME [facility] Last Admin: 08/29/17 19:44 Dose: 1 tab Carbidopa/Levodopa (Sinemet 25-250 Mg) 1 tab PO BID@0800,1200 [facility] Last Admin: 08/30/17 07:24 Dose: 1 tab Diphenhydramine HCl (Benadryl) 25 mg PO BEDTIME [facility] Last Admin: 08/29/17 19:44 Dose: 25 mg Docusate Sodium (Colace) 100 mg PO BEDTIME [facility] Last Admin: 08/29/17 19:44 Dose: 100 mg Donepezil HCl (Aricept) 10 mg PO QPM [facility] Last Admin: 08/29/17 19:44 Dose: 10 mg Enoxaparin Sodium (Lovenox) 40 mg SUBCUT Q24H [facility] Last Admin: 08/29/17 19:45 Dose: 40 mg Levofloxacin/Dextrose 500 mg/ (Premix) 100 mls @ 100 mls/hr IV Q24H [facility] Last Admin: 08/30/17 09:08 Dose: 100 mls/hr Ibuprofen (Motrin) 200 mg PO BEDTIME [facility] Last Admin: 08/29/17 19:41 Dose: 200 mg Lisinopril (Prinivil) 10 mg PO DAILY [facility] Last Admin: 08/30/17 07:25 Dose: 10 mg Loratadine (Claritin) 10 mg PO DAILY [facility] Last Admin: 08/30/17 07:24 Dose: 10 mg Mometasone Furoate/Formoterol Fumar (Dulera 100-5 Mcg) 1 puff IH BIDRT [facility] Last Admin: 08/30/17 07:27 Dose: 1 puff Montelukast Sodium (Singulair) 10 mg PO DAILY [facility] Last Admin: 08/30/17 07:25 Dose: 10 mg Ondansetron HCl (Zofran Odt) 4 mg PO Q4H PRN PRN Reason: nausea, able to take PO Ondansetron HCl (Zofran) 4 mg IV Q4H PRN PRN Reason: Nausea/Vomiting Pantoprazole Sodium (Protonix) 40 mg PO DAILY [facility] Last Admin: 08/30/17 07:24 Dose: 40 mg Risperidone (Risperidal) 0.25 mg PO BEDTIME [facility] Last Admin: 08/29/17 19:44 Dose: 0.25 mg Sertraline HCl (Zoloft) 50 mg PO DAILY [facility] Last Admin: 08/30/17 07:25 Dose: 50 mg Sodium Chloride (Saline Flush) 10 ml FLUSH ASDIRECTED PRN PRN Reason: Keep Vein Open Discontinued Medications Sodium Chloride (Normal Saline) 1,000 mls @ 75 mls/hr IV ASDIRECTED [facility] Last Admin: 08/27/17 07:33 Dose: 75 mls/hr Influenza Virus Vaccine (Fluzone Quad [id number]) 60 mcg IM .ONCE ONE Stop: 08/29/17 09:38 Last Admin: 08/29/17 10:43 Dose: 60 mcg Ptom - Amlodipine 10 (Mg Tab) 10 each PO DAILY [facility] Last Admin: 08/27/17 07:39 Dose: 10 each Aspirin 81 Mg Tab (Ptom) 1 each PO BEDTIME [facility] Last Admin: 08/26/17 19:42 Dose: 1 each Carbidopa/Levodopa (25/250mg Tab Ptom*) 1 each PO BID@0800,1200 [facility] Last Admin: 08/27/17 07:40 Dose: 1 each Certirizine 10 Mg (Tab Ptom) 1 each PO DAILY [facility] Last Admin: 08/27/17 07:40 Dose: 1 each Docusate Colase 100 (Mg Cap Ptom) 100 each PO BEDTIME [facility] Last Admin: 08/26/17 19:43 Dose: 100 each Donepezil 10 Mg Tab (Ptom) 1 each PO QPM [facility] Last Admin: 08/26/17 19:44 Dose: 1 each Ibuprofen/Diphenhydramine 200/25mg Tab (Advil Pm) Ptom 1 each PO BEDTIME [facility] Last Admin: 08/26/17 19:45 Dose: 1 each Lisinopril 10 Mg Tab (Ptom) 1 each PO DAILY [facility] Last Admin: 08/27/17 07:40 Dose: 1 each Montelukast 10mg Tab (Ptom) 1 each PO DAILY [facility] Last Admin: 08/27/17 07:39 Dose: 1 each Pantoprazole 40mg (Tab Ptom) 1 each PO DAILY [facility] Last Admin: 08/27/17 07:38 Dose: 1 each Rispiridone 0.25mg (Tab Ptom) 1 each PO BEDTIME [facility] Last Admin: 08/26/17 19:45 Dose: 1 each Sertraline 50mg Tab (Ptom) 1 each PO DAILY [facility] Last Admin: 08/27/17 07:38 Dose: 1 each Carbidopa/Levodopa (25/100mg Ptom) 1 each PO BEDTIME [facility] Last Admin: 08/26/17 19:43 Dose: 1 each - Exam General: Reports: Alert, Oriented (person only) Neck: Reports: Supple Lungs: Reports: Normal Respiratory Effort, Crackles Cardiovascular: Reports: Regular Rate, Regular Rhythm, Murmurs GI/Abdominal Exam: Normal Bowel Sounds, Soft, Non-Tender Extremities: Normal Inspection, No Pedal Edema Skin: Reports: Warm, Dry Neurological: Reports: No New Focal Deficit *Q Meaningful Use (DIS) - VTE *Q VTE Criteria *Q: - Stroke *Q Stroke Criteria *Q: - AMI *Q AMI Criteria *Q:
[2017-08-30 12:03] VITALS: BP 106/55
== END 2017-08-30 12:50 | DRG 689 ==
LOC: CC.ED 15:08 → CC.MS 16:53 → UNDOADMOB 16:53 → CC.MS 17:10 → OBSVTOIN 08-27 08:51
PROVIDERS: ADMIT Physician Assistant Medical; ATTEND Family Medicine
PROC: 3E0234Z Introduction of Serum, Toxoid and Vaccine into Muscle, Percutaneous Approach (ICD-10-PCS; principal; 2017-08-29)
DX: N30.01 Acute cystitis with hematuria (principal); N39.0 Urinary tract infection, site not specified; J69.0 Pneumonitis due to inhalation of food and vomit; I10 Essential (primary) hypertension; F32.9 Major depressive disorder, single episode, unspecified; F03.90 Unspecified dementia, unspecified severity, without behavioral disturbance, psychotic disturbance, mood disturbance, and anxiety; Z23 Encounter for immunization
CPT/HCPCS: 36415 ×2; 80048; 80053; 81001; 82550; 83615; 84484; 85025 ×2; 86140 ×2; 87086; 93005; 99285; A9270; J1650; J1956; J7030 ×2; 51701; 71045; 83605; 87040; 90686; 93010; 96361; 96365; 96372; 97110-GP; 97163-GP; 99220; G0008; G0378